=== PATIENT | female | born 1935 | race Caucasian/White ===

== ENCOUNTER 2019-03-03 00:13 | Emergency (ER) | payer MEDICARE, BC ==
[~2019-03-03] VITALS: Ht 152.4 cm; Wt 56.7 kg
--- OUTSIDE RECORDS SUMMARY | ~2019-03-03 | XMS | Clinical Summary ---
Demographics + + + | Address | [address] | | | [place] [address] | + + + | Home Phone | | + + + | Preferred Language | Unknown | + + + | Marital Status | | + + + | Taoist Affiliation | Unknown | + + + | Race | Unknown | + + + | Ethnic Group | Unknown | + + + Author + + + | Author | [facility] | + + + | Organization | [facility] | + + + | Address | Unknown | + + + | Phone | Unavailable | + + + Support + + +---------+ + | Name | Relationship | Address | Phone | + + +---------+ + | Virginia Lin | ECON | Unknown | | + + +---------+ + | Cedric Loza | ECON | Unknown | | + + +---------+ + Care Team Providers + +------+ + | Care Chief Yeoman Name | Role | Phone | + +------+ + | Ar Reed MD | PP | | + +------+ + Allergies + + + + + + | Active Allergy | Reactions | Severity | Noted | Comments | | | | | Date | | + + + + + + | Aspirin-Dipyridamole | Nausea and Vomiting | Low | 07/13/20 | | | Er | | | 14 | | + + + + + + | Anesthesia | Other (See Comments) | Medium | 07/13/20 | Lethargic and | | Sensitivity | | | 14 | vomiting | + + + + + + | Clopidogrel | Nausea and Vomiting, | Low | 07/13/20 | | | | Vertigo | | 14 | | + + + + + + Current Medications + + +-------+---------+------+------+-------+ | Prescription | Sig. | Disp. | Refills | Star | End | Statu | | | | | | t | Date | s | | | | | | Date | | | + + +-------+---------+------+------+-------+ | aspirin 81 MG | Take 81 mg by mouth | | | | | Activ | | tablet | daily. | | | | | e | + + +-------+---------+------+------+-------+ | Cholecalciferol | Take by mouth | | | | | Activ | | (VITAMIN D3) 2000 | daily. | | | | | e | | UNITS TABS | | | | | | | + + +-------+---------+------+------+-------+ | LUTEIN PO | Take 400 mg by mouth | | | | | Activ | | | daily. | | | | | e | + + +-------+---------+------+------+-------+ | Melatonin 300 MCG | Take 300 mg by mouth | | | | | Activ | | TABS | daily. | | | | | e | + + +-------+---------+------+------+-------+ | fish oil omega-3 | Take 1 g by mouth | | | | | Activ | | fatty acids 1000 MG | daily. | | | | | e | | capsule | | | | | | | + + +-------+---------+------+------+-------+ | cyanocobalamin | Take 500 mcg by | | | | | Activ | | (VITAMIN B-12) 500 | mouth daily. | | | | | e | | MCG tablet | | | | | | | + + +-------+---------+------+------+-------+ | vitamin E 400 UNIT | Take 400 Units by | | | | | Activ | | capsule | mouth daily. | | | | | e | + + +-------+---------+------+------+-------+ Active Problems + + + | Problem | Noted Date | + + + | Hypertension | 07/13/2014 | + + + + + | Last Assessment & Plan: Hypertension, increasing orthostatic | | symptoms, has fallen, fortunately no injuries. We'll DC her | | losartan, monitor her BP. | + + + + + | Hyperlipidemia | 07/13/2014 | + + + + + | Last Assessment & Plan: Hyperlipidemia, dietary therapy. | + + + + + | H/O: CVA (cerebrovascular accident) | 07/13/2014 | + + + + + | Last Assessment & Plan: Hx CVA, expressive aphasia/left | | hemiplegia, minimal residual. 81yo WF, complains of | | occasional dizziness, increasing orthostatic symptoms, she is | | even had a fall, fortunately no injuries. Apparently she's been | | under significant amount of stress, her has been at the | | [place] longterm for the last 8 months, but recently she is | | brought him home, he has dementia, she is having to care for him | | quite a bit. He is restless, especially in the evenings, she has | | to get up frequently to look in on him, interrupting her sleep. | | Lately, she's been developing some chest discomfort, | | occasionally aggravated with activity, but more likely to be | | aggravated with stress. There is no significant shortness of | | breath, but there is some degree of nausea, no diaphoresis. | | She's unaware of any palpitations. Since last seen, one year | | ago, no surgical procedures or hospitalizations. Today's ECG is | | benign. Labs are pending. Because of her increasing orthostatic | | symptoms, DC the losartan, will monitor her blood pressure. | | Also I've requested an exercise tolerance test.Hx Pacemaker/ICD: | | noLast Cath: naLast Echo, 08/15/2014: cardiac chamber dimensions | | NML, LVEF 65-70%, mild MR, trace TR, trace PI, est systolic PAP | | 21-26mmHg.Last Stress Test, 02/25/2008: 5:00min Avinash, no chest | | pain, ECG (-) for ischemia, no arrhythmias. Carotid US, | | 07/18/2014: mild disease, sol.ECG, 07/21/2016: sinus rhythm, 66bpm, | | borderline ECG (Q-waves III and aVF, PRWP). | + + Family History + + +------+ + | Medical History | Relation | Name | Comments | + + +------+ + | Hypertension | Father | | | + + +------+ + | Stroke | Father | | | + + +------+ + + +------+ + + | Relation | Name | Status | Comments | + +------+ + + | Father | | | massive CVA | | | | (Age | | | | | 46) | | + +------+ + + | Mother | | | HTN,COPD,CHF | | | | (Age | | | | | 83) | | + +------+ + + Social History + +-------+ +--------+------+ | Tobacco Use | Types | Packs/Day | Years | Date | | | | | Used | | + +-------+ +--------+------+ | Never Smoker | | | | | + +-------+ +--------+------+ + +---+---+---+ | Smokeless Tobacco: | | | | | Never Used | | | | + +---+---+---+ + + +---------+ + | Alcohol Use | Drinks/We | oz/Week | Comments | | | ek | | | + + +---------+ + | No | 0 | 0.0 | | | | Standard | | | | | drinks or | | | | | | | | | | equivalen | | | | | t | | | + + +---------+ + + + + | Sex Assigned at | Date Recorded | | | | + + + | Not on file | | + + + Last Filed Vital Signs + + + + | Vital Sign | Reading | Time Taken | + + + + | Blood Pressure | 118/64 | 07/21/2016 1:38 PM PDT | + + + + | Pulse | 70 | 07/21/2016 1:38 PM PDT | + + + + | Temperature | - | - | + + + + | Respiratory Rate | 18 | 07/21/2016 1:38 PM PDT | + + + + | Oxygen Saturation | 95% | 07/21/2016 1:38 PM PDT | + + + + | Inhaled Oxygen | - | - | | Concentration | | | + + + + | Weight | 58.2 kg (128 lb 3.2 | 07/21/2016 1:38 PM PDT | | | oz) | | + + + + | Height | 152.4 cm (5') | 07/21/2016 1:38 PM PDT | + + + + | Body Mass Index | 25.04 | 07/21/2016 1:38 PM PDT | + + + + Plan of Treatment + + + + + | Health Maintenance | Due Date | Last Done | Comments | + + + + + | Vaccine: | | | | | Dtap/Tdap/Td (1 - | 3 | | | | Tdap) | | | | + + + + + | Vaccine: Zoster (1 | | | | | of 2) | 4 | | | + + + + + | DEXA SCAN SCREENING | | | | | | 9 | | | + + + + + | Vaccine: | | | | | Pneumococcal 65+ | 9 | | | | Low/Medium Risk (1 | | | | | of 2 - PCV13) | | | | + + + + + | Statin Therapy | | | | | (optimal intensity) | 7 | | | + + + + + | Vaccine: Influenza | | | | | (#1) | 8 | | | + + + + + Results Not on filefrom Last 3 Months Insurance + +--------+ +------+-------+ + | Payer | Benefi | Subscriber | Type | Phone | Address | | | t Plan | ID | | | | | | / | | | | | | | Group | | | | | + +--------+ +------+-------+ + | MEDICARE | MEDICA | [id number] | | | [address] | | | RE | | | | [place] [id number] | | | IP-OP | | | | | + +--------+ +------+-------+ + | PREMERA | PREMER | [id number] | | | [address] [address] | | | A BLUE | 1 | | | [place], [place] | | | CARD | | | | [phone] | + +--------+ +------+-------+ + + +--------+ +--------+ + + | Guarantor Name | Accoun | Relation to | Date | Phone | Billing Address | | | t Type | Patient | of | | | | | | | | | | + +--------+ +--------+ + + | ESTEBAN LOZA | Person | Self | [birth year] Home: | [address] [place] [address] [address] | | | al/Fam | | 1935 | [phone] | [place] | | | [place] | | | [address] | [phone] | + +--------+ +--------+ + +"
--- OUTSIDE RECORDS SUMMARY | ~2019-03-03 | XMS | Clinical Summary ---
Demographics + + + | Address | [address] | | | [place] [address] | + + + | Home Phone | | + + + | Preferred Language | Unknown | + + + | Marital Status | | + + + | Mandaeism Affiliation | 1027 | + + + | Race | Unknown | + + + | Ethnic Group | Unknown | + + + Author + + + | Author | [facility] | | | and [place] | + + + | Organization | [facility] | | | and [place] | + + + | Address | Unknown | + + + | Phone | Unavailable | + + + Support + + + + + | Name | Relationship | Address | Phone | + + + + + | Karey Loza | ECON | [address] | | | | | [place], [place] | | | | | [address] | | + + + + + | Virginia Lin | ECON | [address] | | | | | [place], | | | | | [place] [address] | | + + + + + Care Team Providers + +------+ + | Care Operator Catalyst Concentration Name | Role | Phone | + +------+ + | Eddie Reed MD | PP | | + +------+ + Allergies + + + + + + | Active Allergy | Reactions | Severity | Noted | Comments | | | | | Date | | + + + + + + | Codeine | | | 10/24/20 | | | | | | 14 | | + + + + + + | Hylan G-F 20 | Other (See Comments) | | 10/20/20 | Synvisc Malaise | | | | | 14 | | + + + + + + | Ibuprofen | | | 10/24/20 | Pill that contains | | | | | 14 | red dye | + + + + + + | Metoprolol Tartrate | Other (See Comments) | | 10/20/20 | Intolerance | | | | | 14 | | + + + + + + | Morphine | | | 10/24/20 | | | | | | 14 | | + + + + + + | Sulfa Antibiotics | Hives, Rash | Low | 10/20/20 | | | | | | 14 | | + + + + + + Current Medications + + +--------+---------+------+------+-------+ | Prescription | Sig. | Disp. | Refills | Star | End | Statu | | | | | | t | Date | s | | | | | | Date | | | + + +--------+---------+------+------+-------+ | aspirin 81 MG | Take 81 mg by mouth | | | | | Activ | | tablet | Daily. | | | | | e | + + +--------+---------+------+------+-------+ | Multiple | Take 2 tablets by | | | | | Activ | | Vitamins-Minerals | mouth Daily. | | | | | e | | (MACULAR VITAMIN | | | | | | | | BENEFIT) TABS | | | | | | | + + +--------+---------+------+------+-------+ | moexipril | Take 7.5 mg by mouth | | | | | Activ | | (UNIVASC) 15 MG | Daily. | | | | | e | | tablet | | | | | | | + + +--------+---------+------+------+-------+ | Cholecalciferol | Take 2 Units by | | | | | Activ | | (VITAMIN D3) 2000 | mouth Daily. | | | | | e | | UNITS CHEW | | | | | | | + + +--------+---------+------+------+-------+ | fish oil 1,000 mg | Take 1,000 mg by | | | | | Activ | | capsule | mouth Daily. | | | | | e | + + +--------+---------+------+------+-------+ | | Take by mouth 2 | | | | | Activ | | Egzolln-Ufrjlncza-Bg | times daily. | | | | | e | | tamin D (CALCIUM 500 | | | | | | | | PO) | | | | | | | + + +--------+---------+------+------+-------+ | Ranibizumab | Inject into the | | | | | Activ | | (LUCENTIS IO) | eye. Every 4-6 weeks | | | | | e | + + +--------+---------+------+------+-------+ | levothyroxine | Take 50 mcg by mouth | | | | | Activ | | (SYNTHROID, | Daily. | | | | | e | | LEVOTHROID) 50 mcg | | | | | | | | tablet | | | | | | | + + +--------+---------+------+------+-------+ | estrogens, | Apply 1 g per vagina | 30 g | 2 | 04/2 | | Activ | | conjugated, | qHS for one week, | | | 0/20 | | e | | (PREMARIN) vaginal | then 1 g per vagina | | | 15 | | | | cream | HS 3 times a week, | | | | | | | | then 1 g per vagina | | | | | | | | once weekly | | | | | | + + +--------+---------+------+------+-------+ Active Problems + + + | Problem | Noted Date | + + + | History of CVA (cerebrovascular accident) (2007) | 10/24/2014 | + + + | Hyperlipidemia | 10/24/2014 | + + + | Cataract | 10/24/2014 | + + + | Macular degeneration | 10/24/2014 | + + + | Osteopenia | 10/24/2014 | + + + | Nephrolithiasis (2006) | 10/24/2014 | + + + | Esophageal reflux | 10/24/2014 | + + + | Hypothyroidism | 10/24/2014 | + + + | Prolapse of female pelvic organs | 10/24/2014 | + + + | Aphasia as late effect of cerebrovascular accident | 10/24/2014 | + + + | Hypovitaminosis D | 10/24/2014 | + + + | Preventative health care | 10/20/2014 | + + + + + | Overview: | | CT Abd/Pel 12/19/08 [facility] | + + Family History + + +------+ + | Medical History | Relation | Name | Comments | + + +------+ + | Stroke | Father | | | + + +------+ + | COPD | Mother | | | + + +------+ + | Coronary artery | Mother | | | | disease | | | | + + +------+ + | Colon cancer | | | | + + +------+ + + +------+ + + | Relation | Name | Status | Comments | + +------+ + + | Father | | | COPD, Coronary Artery Disease | + +------+ + + | Mother | | | Stroke | + +------+ + + Social History + +-------+ +--------+------+ | Tobacco Use | Types | Packs/Day | Years | Date | | | | | Used | | + +-------+ +--------+------+ | Never Smoker | | | | | + +-------+ +--------+------+ + + + | Sex Assigned at | Date Recorded | | | | + + + | Not on file | | + + + Last Filed Vital Signs + + + + | Vital Sign | Reading | Time Taken | + + + + | Blood Pressure | 128/86 | 10/24/2014945 PST | + + + + | Pulse | 72 | 10/24/2014945 PST | + + + + | Temperature | - | - | + + + + | Respiratory Rate | 12 | 10/24/2014945 PST | + + + + | Oxygen Saturation | - | - | + + + + | Inhaled Oxygen | - | - | | Concentration | | | + + + + | Weight | 59.4 kg (131 lb) | 10/24/2014945 PST | + + + + | Height | 152.4 cm (5') | 10/24/2014945 PST | + + + + | Body Mass Index | 25.58 | 10/24/2014945 PST | + + + + Plan of [...] filefrom Last 3 Months Insurance + +--------+ +--------+ +---------+ | Payer | Benefi | Subscriber | Type | Phone | Address | | | t Plan | ID | | | | | | / | | | | | | | Group | | | | | + +--------+ +--------+ +---------+ | MEDICARE | MEDICA | [id number] | Medica | [phone] | | | | RE | | re | [phone] | | | | PART A | | | | | | | AND B | | | | | + +--------+ +--------+ +---------+ | REGENCE | REGENC | [id number] | PPO | [phone] | | | E BCBS | 1 | | [phone] | | | | [place] | | | | | | | PPO | | | | | + +--------+ +--------+ +---------+ + +--------+ +--------+ + + | Guarantor Name | Accoun | Relation to | Date | Phone | Billing Address | | | t Type | Patient | of | | | | | | | | | | + +--------+ +--------+ + + | ESTEBAN LOZA | Person | Self [birth year] | Home: | [address] | | | al/Fam | | 1935 | [phone] | [place] [address] | | | [place] | | | [address] | | + +--------+ +--------+ + +"
--- OUTSIDE RECORDS SUMMARY | ~2019-03-03 | XMS | Clinical Summary ---
Demographics + + + | Address | [address] | | | [place] [address] | + + + | Home Phone | | + + + | Preferred Language | Unknown | + + + | Marital Status | | + + + | Yarsanism Affiliation | Unknown | + + + | Race | Unknown | + + + | Ethnic Group | Unknown | + + + Author + + + | Author | [facility] | + + + | Organization | [facility] | + + + | [...] Team Providers + +------+ + | Care Labor Law Professor Name | Role | Phone | + [...] her has been at the | | [facility] for the last 8 months, but recently [...] +------+-------+ + | MEDICARE | MEDICA | [id number] | | | [address] | | | RE | | | | [place] [phone] | | | IP-OP | | | | | + +--------+ +------+-------+ + | PREMERA | PREMER | [id number] | | | [address] [address] | | | A BLUE | 1 | | | [place], [place] | | | CARD | | | | [phone] | + +--------+ +------+-------+ + + +--------+ +--------+ + + | Guarantor Name | Accoun | Relation to | Date | Phone | Billing Address | | | t Type | Patient | of | | | | | | | | | | + +--------+ +--------+ + + | ESTEBAN LOZA | Person | Self [birth year] | Home: | [address] [place] [address] ST | | | al/Fam | | 1935 | [phone] | [place] | | | [place] | | | [address] | [phone] | + +--------+ +--------+ + +"
--- OUTSIDE RECORDS SUMMARY | ~2019-03-03 | XMS | Clinical Summary ---
Demographics + + + | Address | [address] | | | [place] [address] | + + + | Home Phone | | + + + | Preferred Language | Unknown | + + + | Marital Status | | + + + | Sikhism Affiliation | 1027 | + + + | Race | Unknown | + + + | Ethnic Group | Unknown | + + + Author + + + | Author | [facility] | | | and [place] | + + + | Organization | [facility] | | | and [place] [...] [place], [place] | | | | | [address] | | + + + + + | Virginia Lin | ECON | [address] | | | | | [place], | | | | | [place] [address] | | + + + + + Care Team Providers + +------+ + | Care Foam Caster Name | Role | Phone | + [...] | | | | Activ | | Lxlzcww-[id number]-Ei | times daily. | | | | [...] +--------+ +---------+ | MEDICARE | MEDICA | [id number] | Medica | [phone] | | | | RE | | re | [phone] | | | | PART A | | | | | | | AND B | | | | | + +--------+ +--------+ +---------+ | REGENCE | REGENC | [id number] | PPO | [phone] | | [...] Self | [birth year] | Home: | [address] | | | al/Fam | | 1935 | [phone] | [place] [address] | | | [place] | | | [address] | | + +--------+ +--------+ + +"
[~2019-03-03 00:13] MED LIST: ASPIRIN EC81 MG PO; AVASTIN100 MG/4 M IV; CALCIUM 500 +1 EAC2 PO; COZAAR50 MG PO; DEMEROL50 MG PO; FISH OIL-OMEGA1 EACH PO; FLOMAX0.4 MG PO; LEVOTHYROXINE50 MCG PO; LISINOPRIL10 MG PO; LUCENTIS0.3 MG/0.0 OPTH; LUTEIN10 MG PO; MIRALAX17 GM PO; MOEXIPRIL HCL7.5 MG PO; OCUVITE TABLET1 EAC1 PO; PREDNISONE20 MG PO; TRAMADOL HCL50 MG PO; VANCOMYCIN HCL1 GM IV; VITAMIN B-12100 MCG PO; VITAMIN E400 UNI2 PO; ZOFRAN ODT4 MG PO
[2019-03-03] MEDS ORDERED: ZOFRAN4 MG PO (05:13)
[2019-03-03] MEDS ORDERED: FLOMAX0.4 MG PO (05:13)
[2019-03-03] MEDS ORDERED: ULTRAM50 MG PO (05:13)
== END 2019-03-03 05:30 | disposition home or self-care (01) ==
LOC: ED 00:13
DX: N13.2 Hydronephrosis with renal and ureteral calculous obstruction (principal); I10 Essential (primary) hypertension; Z86.73 Personal history of transient ischemic attack (TIA), and cerebral infarction without residual deficits; Z87.442 Personal history of urinary calculi; Z90.710 Acquired absence of both cervix and uterus; Z88.5 Allergy status to narcotic agent; Z88.2 Allergy status to sulfonamides; Z88.8 Allergy status to other drugs, medicaments and biological substances; Z79.82 Long term (current) use of aspirin; Z79.899 Other long term (current) drug therapy
CPT/HCPCS: 74177; 80053; 81001; 83690; 85025; 99284-25; J2405; Q9967

== ENCOUNTER 2020-09-27 12:07 | Emergency (ER) | payer MEDICARE, BC ==
[~2020-09-27] VITALS: Ht 152.4 cm; Wt 56.7 kg
[~2020-09-27 12:07] MED LIST changes: +ULTRAM50 MG PO; +ZOFRAN4 MG PO
[2020-09-27] MEDS ORDERED: LUTEIN40 MG PO (12:28)
[2020-09-27] MEDS ORDERED: BUDESONIDE EC3 MG PO (12:28)
[2020-09-27] MEDS ORDERED: MULTI VITAMIN1 EACH PO (12:29)
== END 2020-09-27 14:25 | disposition home or self-care (01) ==
LOC: ED 12:07
DX: R10.32 Left lower quadrant pain (principal); I10 Essential (primary) hypertension; Z86.73 Personal history of transient ischemic attack (TIA), and cerebral infarction without residual deficits; Z87.442 Personal history of urinary calculi; Z88.5 Allergy status to narcotic agent; Z88.8 Allergy status to other drugs, medicaments and biological substances; Z88.2 Allergy status to sulfonamides; Z79.899 Other long term (current) drug therapy; Z79.82 Long term (current) use of aspirin
CPT/HCPCS: 74176; 80053; 81001; 83690; 85025; 96360; 99284-25; J7040